=== PATIENT | female | born 1980 | race Caucasian/White ===

== ENCOUNTER 2022-05-24 16:10 | Inpatient (IN) | payer BC ==
[~2022-05-24] VITALS: Ht 165.1 cm; Wt 94.0 kg
[~2022-05-24 16:10] MED LIST: BREO ELLIPTA 11 EACH INH; CEPHALEXIN500 M1 PO; CIPRODEX 0.3%-7.5 ML OT; CIPROFLOXACIN500 MG PO; CYCLOBENZAPRINE10 MG PO; DECADRON4 M2 PO; DITROPAN5 MG PO; FENOFIBRATE150 MG PO; FLEXERIL10 MG PO; MEDROL DOSEPAK4 MG PO; METFORMIN HCL500 M2 PO; MOTRIN800 MG PO; NAPROSYN500 MG PO; OMEPRAZOLE40 MG PO; ONDANSETRON4 MG SL; PERCOCET 325 MG1 TA2 PO; SPIRIVA18 MCG PO; TRAMADOL HCL50 MG PO; TRIMOX500 MG PO; VICODIN 5/500 505 MG PO
[2022-05-24 16:35] VITALS: BP 140/71
[2022-05-24 17:58] LABS: HEMATOCRIT 41.4 % (37.0-47.0); MEAN CELL VOLUME 74.1 fl (81.0-99.0); MEAN CORPUSCULAR HGB 22.9 pg (27.0-31.0); MEAN CORPUSCULAR HGB CONC 30.9 g/dl (33.0-37.0); MEAN PLATELET VOLUME 9.4 fl (9.6-12.3); PLATELET COUNT AUTOMATED 496 10*3/uL (130-400); RED BLOOD COUNT 5.59 10*6/uL (4.10-5.10); RED CELL DISTRI WIDTH 17.3 % (0-14.5); WHITE BLOOD COUNT 17.3 10*3/uL (4.8-10.8)
[2022-05-24 17:59] LABS: MANUAL DIFF REFLEX YES
[2022-05-24 18:15] LABS: ALKALINE PHOSPHATASE 102 U/L (45-117); BUN 18 mg/dl (7-24); CHLORIDE 103 mmol/L (98-107); CREATININE 0.91 mg/dL (0.55-1.02); POTASSIUM 3.8 mmol/L (3.5-5.1); SGOT/AST 49 IU/L (3-35); SGPT/ALT 37 U/L (12-78); SODIUM 136 mmol/L (136-145)
[2022-05-24 18:19] LABS: PLATELET SUFFICIENCY HIGH (NORMAL); TOTAL CELLS COUNTED 100 #CELLS
[2022-05-24 18:21] LABS: MICROCYTOSIS SLIGHT
[2022-05-24 21:15] VITALS: BP 143/88
[2022-05-25] VITALS: BP 127/61
[2022-05-25 06:11] LABS: ALKALINE PHOSPHATASE 103 U/L (45-117); BUN 21 mg/dl (7-24); CHLORIDE 102 mmol/L (98-107); CHOLESTEROL 199 mg/dL (<200); CREATININE 0.91 mg/dL (0.55-1.02); LDH 265 U/L (84-246); SGOT/AST 69 IU/L (3-35); SGPT/ALT 42 U/L (12-78); SODIUM 134 mmol/L (136-145); TOTAL PROTEIN 7.9 gm/dL (6.4-8.2); TRIGLYCERIDES 703 mg/dl (<150)
[2022-05-25 06:17] LABS: FREE T4 1.03 ng/dl (0.76-1.46); HEMATOCRIT 42.5 % (37.0-47.0); MEAN CELL VOLUME 75.4 fl (81.0-99.0); MEAN CORPUSCULAR HGB 23.4 pg (27.0-31.0); MEAN CORPUSCULAR HGB CONC 31.1 g/dl (33.0-37.0); MEAN PLATELET VOLUME 9.6 fl (9.6-12.3); NUCLEATED RED BLOOD CELL 0.1 % (0.0-0.0); PLATELET COUNT AUTOMATED 529 10*3/uL (130-400); RED BLOOD COUNT 5.64 10*6/uL (4.10-5.10); RED CELL DISTRI WIDTH 17.8 % (0-14.5); THYROID STIM HORMONE (HS) 0.612 uIU/ml (0.358-4.75); WHITE BLOOD COUNT 18.3 10*3/uL (4.8-10.8)
[2022-05-25 06:26] LABS: MANUAL DIFF REFLEX YES
[2022-05-25 06:28] LABS: ACT PARTIAL THROMBO TIME 26.9 SECONDS (20.0-32.1)
[2022-05-25 07:39] LABS: TOTAL CELLS COUNTED 100 #CELLS
[2022-05-25 07:40] LABS: PLATELET SUFFICIENCY HIGH (NORMAL)
[2022-05-25 07:41] LABS: POLYCHROMASIA SLIGHT
[2022-05-25 08:00] VITALS: BP 123/80
[2022-05-25 10:03] LABS: VITAMIN D, 25-HYDROXY 27.9 ng/mL (30-100)
[2022-05-25 12:00] VITALS: BP 135/70
[2022-05-25 16:00] VITALS: BP 124/80
[2022-05-25 20:00] VITALS: BP 148/84
[2022-05-26] VITALS: BP 126/68
[2022-05-26 06:16] LABS: BUN 23 mg/dl (7-24); CHLORIDE 102 mmol/L (98-107); CREATININE 0.79 mg/dL (0.55-1.02); POTASSIUM 3.9 mmol/L (3.5-5.1); SODIUM 136 mmol/L (136-145)
[2022-05-26 06:17] LABS: LDH 263 U/L (84-246)
[2022-05-26 06:55] LABS: HEMATOCRIT 41.4 % (37.0-47.0); MEAN CELL VOLUME 74.7 fl (81.0-99.0); MEAN CORPUSCULAR HGB 23.6 pg (27.0-31.0); MEAN CORPUSCULAR HGB CONC 31.6 g/dl (33.0-37.0); MEAN PLATELET VOLUME 9.5 fl (9.6-12.3); NUCLEATED RED BLOOD CELL 0.2 % (0.0-0.0); PLATELET COUNT AUTOMATED 510 10*3/uL (130-400); RED BLOOD COUNT 5.54 10*6/uL (4.10-5.10); RED CELL DISTRI WIDTH 17.4 % (0-14.5); WHITE BLOOD COUNT 16.2 10*3/uL (4.8-10.8)
[2022-05-26 06:58] LABS: MANUAL DIFF REFLEX YES
[2022-05-26 08:00] VITALS: BP 120/84
[2022-05-26 08:28] LABS: MICROCYTOSIS SLIGHT; OVALOCYTES FEW; POLYCHROMASIA SLIGHT; TOTAL CELLS COUNTED 100 #CELLS
[2022-05-26 08:29] LABS: PLATELET SUFFICIENCY HIGH (NORMAL)
[2022-05-26 12:00] VITALS: BP 117/72
[2022-05-26 16:13] VITALS: BP 125/81
[2022-05-26 20:00] VITALS: BP 126/77
[2022-05-27] VITALS: BP 121/73
[2022-05-27 06:24] LABS: BUN 23 mg/dl (7-24); CHLORIDE 103 mmol/L (98-107); CREATININE 0.73 mg/dL (0.55-1.02); POTASSIUM 4.2 mmol/L (3.5-5.1); SODIUM 137 mmol/L (136-145)
[2022-05-27 06:27] LABS: HEMATOCRIT 39.1 % (37.0-47.0); MEAN CELL VOLUME 73.4 fl (81.0-99.0); MEAN CORPUSCULAR HGB 23.3 pg (27.0-31.0); MEAN CORPUSCULAR HGB CONC 31.7 g/dl (33.0-37.0); MEAN PLATELET VOLUME 9.5 fl (9.6-12.3); PLATELET COUNT AUTOMATED 434 10*3/uL (130-400); RED BLOOD COUNT 5.33 10*6/uL (4.10-5.10); RED CELL DISTRI WIDTH 16.7 % (0-14.5); WHITE BLOOD COUNT 15.7 10*3/uL (4.8-10.8)
[2022-05-27 06:38] LABS: MANUAL DIFF REFLEX YES
[2022-05-27 07:57] LABS: MICROCYTOSIS SLIGHT; PLATELET SUFFICIENCY HIGH (NORMAL); POLYCHROMASIA SLIGHT; TOTAL CELLS COUNTED 100 #CELLS; TOXIC GRANULATION SLIGHT
[2022-05-27 08:00] VITALS: BP 121/84
[2022-05-27 12:00] VITALS: BP 126/89
[2022-05-27] MEDS ORDERED: DECADRON6 M1 PO (14:06)
== END 2022-05-27 16:21 | disposition home or self-care (01) | DRG 871 ==
LOC: ED 16:10 → 4E 18:45 → EDHOLD 18:45 → 4E 20:00
PROVIDERS: Family Medicine; Internal Medicine; Physician Assistant; ADMIT Family Medicine; ATTEND Family Medicine
PROC: XW033E5 Introduction of Remdesivir Anti-infective into Peripheral Vein, Percutaneous Approach, New Technology Group 5 (ICD-10-PCS; principal; 2022-05-25)
DX: A41.9 Sepsis, unspecified organism (principal); U07.1 COVID-19; J96.01 Acute respiratory failure with hypoxia; J12.82 Pneumonia due to coronavirus disease 2019; E87.1 Hypo-osmolality and hyponatremia; J44.0 Chronic obstructive pulmonary disease with (acute) lower respiratory infection; R65.20 Severe sepsis without septic shock; K21.9 Gastro-esophageal reflux disease without esophagitis; E78.00 Pure hypercholesterolemia, unspecified; I10 Essential (primary) hypertension; D72.821 Monocytosis (symptomatic); D75.839 Thrombocytosis, unspecified; R73.9 Hyperglycemia, unspecified; R74.01 Elevation of levels of liver transaminase levels; Z98.51 Tubal ligation status